=== PATIENT | female | born 1990 | race Caucasian/White ===

== ENCOUNTER 2016-11-27 15:01 | Emergency (ER) | payer MEDICARE, MEDICAID ==
--- NOTE | 2016-11-27 15:57 | ER Document Report ---
ED Medical Screen (RME) - General Chief Complaint: Abdominal Pain Stated Complaint: RIGHT SIDE PAIN Notes: Patient was referred here from her private doctor's office to have a CT scan of her abdomen to rule out appendicitis. Patient says she started having lower right abdominal pain last night and has gotten worse. She went to the doctor's office today and after their exam, including a pelvic exam, she was referred here for further workup. Patient says she's been nauseated but not vomiting. No diarrhea. No UTI symptoms. Did have a fever last night. LMP 4/13. On no control. No prior abdominal surgeries. Medications are for treating anxiety, bipolar disorder, ADHD. TRAVEL OUTSIDE OF THE [place] IN LAST 30 DAYS: No - Related Data Allergies/Adverse Reactions: No Known Allergies Allergy (Verified 11/27/16 15:23) Past Medical History - Past Medical History Cardiac Medical History: Denies: Hx Coronary Artery Disease, Hx Heart Attack, Hx Hypertension Pulmonary Medical History: Denies: Hx Asthma, Hx Bronchitis, Hx COPD, Hx Pneumonia Neurological Medical History: Denies: Hx Cerebrovascular Accident, Hx Seizures Renal/ Medical History: Denies: Hx Peritoneal Dialysis GI Medical History: Reports: Hx Gastroesophageal Reflux Disease Musculoskeltal Medical History: Reports Hx Arthritis - knees and lower back Psychiatric Medical History: Reports: Hx Attention Deficit Hyperactivity Disorder, Hx Bipolar Disorder, Hx Depression Past Surgical History: Reports: Hx Oral Surgery. Denies: Hx Hysterectomy - Immunizations Immunizations up to date: Yes Hx Diphtheria, Pertussis, Tetanus Vaccination: No - unsure Physical Exam - Vital signs Vitals: Temp Pulse Resp BP Pulse Ox 98.5 F 92 20 122/73 97 11/27/16 15:25 11/27/16 15:25 11/27/16 15:25 11/27/16 15:25 11/27/16 15:25 Course - Vital Signs Vital signs: Temp Pulse Resp BP Pulse Ox 98.5 F 92 20 122/73 97 11/27/16 15:25 11/27/16 15:25 11/27/16 15:25 11/27/16 15:25 11/27/16 15:25
[2016-11-27 16:11] LABS: ABSOLUTE BASOPHILS # (AUTO) 0.1 10^3/uL (0.0-0.2); ABSOLUTE EOSINOPHILS # (AUTO) 0.2 10^3/uL (0.0-0.6); ABSOLUTE LYMPHOCYTES (AUTO) 1.4 10^3/uL (0.5-4.7); ABSOLUTE MONOCYTES (AUTO) 0.5 10^3/uL (0.1-1.4); ABSOLUTE NEUT (AUTO) 4.7 10^3/uL (1.7-8.2); BASOPHILS % (AUTO) 0.8 % (0-2); EOSINOPHILS % (AUTO) 2.3 % (0-6); HEMATOCRIT 40.2 % (36.0-47.0); HEMOGLOBIN 13.8 g/dL (12.0-15.5); HGB HCT DIFFERENCE 1.2; LYMPHOCYTES % (AUTO) 20.1 % (13-45); MEAN CORPUSCULAR HEMOGLOBIN 28.7 pg (27.0-33.4); MEAN CORPUSCULAR HGB CONC 34.3 g/dL (32.0-36.0); MEAN CORPUSCULAR VOLUME 84 fl (80-97); MONOCYTES % (AUTO) 7.3 % (3-13); RED CELL DISTRIBUTION WIDTH 13.6 % (11.5-14.0); SEGMENTED NEUTROPHILS % (AUTO) 69.5 % (42-78); WHITE BLOOD COUNT 6.7 10^3/uL (4.0-10.5)
[2016-11-27 16:19] LABS: APPEARANCE,URINE SLIGHTLY-CLOUDY; BILIRUBIN,URINE NEGATIVE (NEGATIVE); GLUCOSE, URINE NEGATIVE (NEGATIVE); KETONES,URINE NEGATIVE (NEGATIVE); LEUKOCYTE ESTERASE,URINE NEGATIVE (NEGATIVE); NITRITE,URINE NEGATIVE (NEGATIVE); PROTEIN,URINE NEGATIVE (NEGATIVE); URINE SPECIFIC GRAVITY 1.028; UROBILINOGEN,URINE NEGATIVE mg/dL (<2.0)
[2016-11-27 16:33] LABS: ALANINE AMINOTRANSFERASE 29 U/L (9-52); ALBUMIN 4.4 g/dL (3.5-5.0); ALKALINE PHOSPHATASE 92 U/L (38-126); ANION GAP 12 (5-19); ASPARTATE AMINO TRANSFERASE 24 U/L (14-36); BILIRUBIN,DIRECT 0.2 mg/dL (0.0-0.4); BILIRUBIN,TOTAL 0.5 mg/dL (0.2-1.3); BLOOD UREA NITROGEN 15 mg/dL (7-20); CALCIUM 9.4 mg/dL (8.4-10.2); CARBON DIOXIDE 25 mmol/L (22-30); CHLORIDE 105 mmol/L (98-107); CREATININE RESULT 0.81 mg/dL (0.52-1.25); GLUCOSE 102 mg/dL (75-110); LIPASE 63.9 U/L (23-300); POTASSIUM 4.2 mmol/L (3.6-5.0); SODIUM 142.1 mmol/L (137-145); TOTAL PROTEIN 7.3 g/dL (6.3-8.2)
--- NOTE | 2016-11-27 16:33 | ER Document Report ---
ED GI/ - General Chief Complaint: Abdominal Pain Stated Complaint: RIGHT SIDE PAIN Time seen by provider: 16:33 Mode of Arrival: Ambulatory Information source: Patient Notes: 26 yo female c/o fever and RLQ sharp abdominal pain since 11 pm last night, she developed nausea without vomiting. Nonpainful intercourse with a new partner last night. No Vaginal discharge or bleeding. G0. No history of ovarian cyst STD or endometriosis. No abdominal surgeries. No flank pain. TRAVEL OUTSIDE OF THE [place] IN LAST 30 DAYS: No - Related Data Allergies/Adverse Reactions: No Known Allergies Allergy (Verified 11/27/16 15:23) Past Medical History - General Information source: Patient - Social History Smoking Status: Never Smoker Frequency of alcohol use: None Drug Abuse: None Lives with: Family Family History: Reviewed & Not Pertinent Patient has suicidal ideation: No Patient has homicidal ideation: No Renal/ Medical History: Denies: Hx Peritoneal Dialysis GI Medical History: Reports: Hx Gastroesophageal Reflux Disease Musculoskeltal Medical History: Reports Hx Arthritis - knees and lower back Psychiatric Medical History: Reports: Hx Attention Deficit Hyperactivity Disorder, Hx Bipolar Disorder, Hx Depression Past Surgical History: Reports: Hx Oral Surgery - Immunizations Immunizations up to date: Yes Hx Diphtheria, Pertussis, Tetanus Vaccination: No - unsure Review of Systems - Review of Systems Constitutional: No symptoms reported EENT: No symptoms reported Cardiovascular: No symptoms reported Respiratory: No symptoms reported Gastrointestinal: See HPI Genitourinary: No symptoms reported Female Genitourinary: No symptoms reported Musculoskeletal: No symptoms reported Skin: No symptoms reported Hematologic/Lymphatic: No symptoms reported Neurological/Psychological: No symptoms reported Physical Exam - Vital signs Vitals: Temp Pulse Resp BP Pulse Ox 98.5 F 92 20 122/73 97 11/27/16 15:25 11/27/16 15:25 11/27/16 15:25 11/27/16 15:25 11/27/16 15:25 Interpretation: Normal - General General appearance: Appears well, Alert In distress: None - HEENT Head: Normocephalic, Atraumatic Eyes: Normal Conjunctiva: Normal Pupils: PERRL Mucous membranes: Normal Pharynx: Normal Neck: Supple. No: Lymphadenopathy - Respiratory Respiratory status: No respiratory distress Chest status: Nontender Breath sounds: Normal Chest palpation: Normal - Cardiovascular Rhythm: Regular Heart sounds: Normal auscultation Murmur: No - Abdominal Inspection: Normal Distension: No distension Bowel sounds: Normal Tenderness: Tender, McBurney's point. No: Zazueta's sign Organomegaly: No organomegaly. No: Hepatomegaly, Splenomegaly - Genitourinary External exam: Normal Speculum exam: Vaginal discharge - Clear at I, Other - smells like BV. No: Cervix closed Bimanuel exam: No: Cervical motion tender, Adnexal tenderness - Back Back: Normal, Nontender. No: CVA tenderness - Extremities General upper extremity: Normal inspection, Nontender, Normal color, Normal ROM , Normal temperature General lower extremity: Normal inspection, Nontender, Normal color, Normal ROM , Normal temperature, Normal weight bearing. No: Andreas's sign - Neurological Neuro grossly intact: Yes Cognition: Normal Orientation: AAOx4 Ambar Coma Scale Eye Opening: Spontaneous Ambar Coma Scale Verbal: Oriented Ambar Coma Scale Motor: Obeys Commands Ambar Coma Scale Total: 15 Speech: Normal Motor strength normal: LUE, RUE, LLE, RLE Sensory: Normal - Psychological Associated symptoms: Normal affect, Normal mood - Skin Skin Temperature: Warm Skin Moisture: Dry Skin Color: Normal Skin irregularity: negative: Rash Course - Re-evaluation Re-evalutation: 11/27/16 17:04 I spoke with Mariah and Dr. Luna's office who did the pelvic exam. They did do a new swab which the results will not be back today it tests for BV Chlamydia gonorrhea and trichomonas. She did say that it smelled like bacterial vaginosis and she had some mild right adnexal tenderness. 11/27/16 18:19 appendix not seen on IV contrasted CT, labs normal except for wet prep, std testing pending/ will have pt call me back for results she knows to return tonight if the pain gets worse, otherwise recheck the belly tomorrow at Dr. Luna's or the emergency department. I discussed with her this benign vaginal wall cyst . She can see OBGYN about it. 11/27/16 18:[address] [facility] dr. buckner for disposition. OK to go home. 11/27/16 18:39 - Vital Signs Vital signs: Temp Pulse Resp BP Pulse Ox 98.5 F 92 20 122/73 97 11/27/16 15:25 11/27/16 15:25 11/27/16 15:25 11/27/16 15:25 11/27/16 15:25 - Laboratory Result Diagrams: 11/27/16 15:55 11/27/16 15:55 Discharge - Discharge Clinical Impression: Bacterial vaginosis, right lower quadrant abdominal pain, 2 x 3 cm Shane's duct cyst rt vaginal wall Condition: Good Disposition: HOME, SELF-CARE Instructions: Abdominal Pain ([facility]), Acetaminophen, Anti-Inflammatory Medication ([facility]), Metronidazole ([facility]), Vaginosis, Bacterial ([facility]) Additional Instructions: return to ER for recheck of abdomin in the morning ( morning) return to ER sooner if worse you will be treated for bacterial vaginosis with flagyl 500mg twice a day, do not drink alcohol when you take this medication std cultures will be resulted in 2 hours, call mi [phone]. Prescriptions: Ibuprofen [Motrin 800 mg Tablet] 800 mg PO Q8HP PRN #30 tablet PRN Reason: Referrals: JEANINE LUNA MD [Primary Care Provider] - Follow up tomorrow ERROL RAMIREZ MD [ACTIVE STAFF] - Follow up as needed
[2016-11-27 18:41] LABS: CHLAM PCR NOT DETECTED (NOT DETECT)
[2016-11-27 18:49] VITALS: BP 126/72
== END 2016-11-27 18:53 | disposition home or self-care (01) ==
LOC: ER 15:01
DX: N76.0 Acute vaginitis (principal); R10.31 Right lower quadrant pain; Q52.4 Other congenital malformations of vagina
CPT/HCPCS: 36415; 74177; 80053; 81001; 83690; 84703; 85025; 87210; 87491; 87591; 99284

== ENCOUNTER 2016-12-14 23:23 | Emergency (ER) | payer MEDICARE, MEDICAID ==
[2016-12-15] MEDS ORDERED: METHOCARBAMOL 500 MG TABLET PO ONE (00:57)
--- NOTE | 2016-12-15 01:02 | ER Document Report ---
HPI - HPI Patient complains to provider of: back pain Onset: Other - 3 days Pain Level: 4 Context: Patient presents to the emergency department with complaints of low back pain for the past 3 days. Patient denies trauma. Denies urinary or bowel incontinence or retention. Denies numbness and tingling. Patient reports she just woke up with her back hurting. Patient reports she's had this pain in the past. Reports history of arthritis. Denies fever vomiting diarrhea. Denies pain with void. Patient reports pain with movement. She reports she took ibuprofen approximately 8 hours ago with no relief of pain. Associated Symptoms: None Exacerbated by: Movement Relieved by: Denies Similar symptoms previously: Yes Recently seen / treated by doctor: No - CONSTITUTIONAL Constitutional: DENIES: Fever, Chills - REPRODUCTIVE Reproductive: DENIES: : - MUSCULOSKELETAL Musculoskeletal: REPORTS: Back Pain - DERM Skin Color: Normal, [place] Skin Problems: None - NURSING COMMENTS Comment: pt presents to the ED with c/o low back pain that occured 3days ago after bending over. pt is ambulatory and appropriate at this time Past Medical History - General Information source: Patient Last Menstrual Period: last november - Social History Smoking Status: Unknown if Ever Smoked Cigarette use (# per day): No Frequency of alcohol use: None Drug Abuse: None Occupation: none Lives with: Family Family History: Reviewed & Not Pertinent - Past Medical History Cardiac Medical History: Denies: Hx Coronary Artery Disease, Hx Heart Attack, Hx Hypertension Pulmonary Medical History: Denies: Hx Asthma, Hx Bronchitis, Hx COPD, Hx Pneumonia Neurological Medical History: Denies: Hx Cerebrovascular Accident, Hx Seizures Renal/ Medical History: Denies: Hx Peritoneal Dialysis GI Medical History: Reports: Hx Gastroesophageal Reflux Disease Musculoskeltal Medical History: Reports Hx Arthritis - knees and lower back Psychiatric Medical History: Reports: Hx Attention Deficit Hyperactivity Disorder, Hx Bipolar Disorder, Hx Depression Past Surgical History: Reports: Hx Oral Surgery. Denies: Hx Hysterectomy - Immunizations Immunizations up to date: Yes Hx Diphtheria, Pertussis, Tetanus Vaccination: No - unsure Vertical Provider Document - CONSTITUTIONAL Agree With Documented VS: Yes Exam Limitations: No Limitations General Appearance: WD/WN, Mild Distress - winces with movement - INFECTION CONTROL TRAVEL OUTSIDE OF THE [place] IN LAST 30 DAYS: No - HEENT HEENT: Atraumatic, Normocephalic - NECK Neck: Normal Inspection, Supple. negative: Lymphadenopathy-Left, Lymphadenopathy-Right - RESPIRATORY Respiratory: Breath Sounds Normal, No Respiratory Distress O2 Sat by Pulse Oximetry: 98 - CARDIOVASCULAR Cardiovascular: Regular Rate, Regular Rhythm - GI/ABDOMEN Gastrointestinal: Abdomen Soft, Abdomen Non-Tender - BACK Back: Normal Inspection - No obvious deformity good distal movement and sensation. good Reflexes, no weakness complains of bilateral low back pain denies vertebral pain - MUSCULOSKELETAL/EXTREMETIES Musculoskeletal/Extremeties: MAEW, FROM, Non-Tender - NEURO Level of Consciousness: Awake, Alert, Appropriate Motor/Sensory: No Motor Deficit - DERM Integumentary: Warm, Dry Adult Front & Back Diagram: 1 - low back pain paraspinal, no vertebral tenderness Course - Re-evaluation Re-evalutation: 12/15/16 01:04 The patient presents with low back pain without signs of spinal cord compression , cauda equine syndrome, infection, aneurysm, or other serious etiology. The patient is neurologically intact. The patient has good distal movement and sensation, denies urinary or bowel incontinence/retention. Given the extremely low risk of these diagnosis, further testing and evaluation for these possibilities does not appear to be indicated at this time. The patient has been instructed to return if the symptoms worsen or change in anyway. - Vital Signs Vital signs: Temp Pulse Resp BP Pulse Ox 98.8 F 92 14 116/68 98 12/14/16 23:27 12/14/16 23:27 12/14/16 23:27 12/14/16 23:27 12/14/16 23:27 Discharge - Discharge Clinical Impression: Low back pain Qualifiers: Chronicity: acute Back pain laterality: bilateral Sciatica presence: without sciatica Qualified Code(s): M54.5 - Low back pain Condition: Stable Disposition: HOME, SELF-CARE Instructions: Ice Packs ([facility]), Low Back Pain ([facility]), Muscle Strain ([facility]), Warm Packs ([facility]), Use of [id number] Ibuprofen ([facility]), Muscle Relaxers ([facility]) Additional Instructions: *You have been evaluated for low back muscle pain *Take medication as prescribed *Rest/Ice packs, heat packs as directed *Follow up with your primary care provider Friday *Return to ED for worsening condition, changes, needs Prescriptions: Cyclobenzaprine HCl [Flexeril 5 mg Tablet] 5 mg PO TID #15 tablet Referrals: JEANINE LUCAS MD [Primary Care Provider] - 12/16/16
[2016-12-15 01:11] VITALS: BP 117/69
== END 2016-12-15 01:11 | disposition home or self-care (01) ==
LOC: ER 23:23
DX: M46.90 Unspecified inflammatory spondylopathy, site unspecified (principal); M54.5 Low back pain
CPT/HCPCS: 99283; A9270

== ENCOUNTER 2017-07-25 22:10 | Emergency (ER) | payer MEDICARE, MEDICAID ==
--- NOTE | 2017-07-25 23:55 | ER Document Report ---
ED GI/ - General Mode of Arrival: Ambulatory Information source: Patient TRAVEL OUTSIDE OF THE [place] IN LAST 30 DAYS: No - HPI Patient complains to provider of: Dysuria, Flank pain Onset: Other Location: Left flank Relieved by: Supine - General Chief Complaint: UTI symptoms Stated Complaint: FLANK PAIN Time Seen by Provider: 07/25/17 23:41 Notes: Patient is a 26 year old female with a history of frequents UTIs presents to the emergency department complaining of left flank pain onset 3 days ago. Patients associated symptoms include dysuria, burning urination and frequency. Patient denies fevers. (GURINDER,TAMAYA) - Related Data Allergies/Adverse Reactions: No Known Allergies Allergy (Verified 12/14/16 23:27) Past Medical History - General Information source: Patient - Social History Smoking Status: Current Every Day Smoker Cigarette use (# per day): Yes Chew tobacco use (# tins/day): No Smoking Education Provided: Yes - >4 mins Frequency of alcohol use: None Family History: Reviewed & Not Pertinent GI Medical History: Reports: Hx Gastroesophageal Reflux Disease Musculoskeltal Medical History: Reports Hx Arthritis - knees and lower back Psychiatric Medical History: Reports: Hx Attention Deficit Hyperactivity Disorder, Hx Bipolar Disorder, Hx Depression Past Surgical History: Reports: Hx Oral Surgery - Immunizations Immunizations up to date: Yes Hx Diphtheria, Pertussis, Tetanus Vaccination: No - unsure Review of Systems - Review of Systems Constitutional: No symptoms reported EENT: No symptoms reported Cardiovascular: No symptoms reported Respiratory: No symptoms reported Gastrointestinal: No symptoms reported Genitourinary: See HPI, Burning, Dysuria, Frequency, Flank pain Female Genitourinary: No symptoms reported Musculoskeletal: No symptoms reported Skin: No symptoms reported Hematologic/Lymphatic: No symptoms reported Neurological/Psychological: No symptoms reported -: Yes All other systems reviewed and negative Physical Exam - Vital signs Vitals: Temp Pulse Resp BP Pulse Ox 99 F 103 H 16 127/80 H 96 07/25/17 22:35 07/25/17 22:35 07/25/17 22:35 07/25/17 22:35 07/25/17 22:35 - Notes Notes: GENERAL: Alert, interacts well. No acute distress. HEAD: Normocephalic, atraumatic. EYES: Pupils equal, round, and reactive to light. Extraocular movements intact. ENT: Oral mucosa moist, tongue midline. NECK: Full range of motion. Supple. Trachea midline. LUNGS: Clear to auscultation bilaterally, no wheezes, rales, or rhonchi. No respiratory distress. HEART: Regular rate and rhythm. No murmurs, gallops, or rubs. ABDOMEN: Soft, Suprapubic and LLQ tender to palpaiton, no guarding or rebound. Non-distended. Bowel sounds present in all 4 quadrants. EXTREMITIES: Moves all 4 extremities spontaneously. No edema, radial and dorsalis pedis pulses 2/4 bilaterally. No cyanosis. NEUROLOGICAL: Alert and oriented x3. Normal speech. PSYCH: Normal affect, normal mood. SKIN: Warm, dry, normal turgor. No rashes or lesions noted. (LING FAIRCHILD) Course - Re-evaluation Re-evalutation: 07/26/17 00:39 Urinalysis shows small blood, positive nitrates and leukocyte esterase, greater than 182 WBCs only 19 RBCs, 3+ bacteria, many white blood cell clumps. Suspect UTI rather than infected stone given the description of her pain and the description of her symptoms. No indication for CT scan at this time. Patient will be treated with Pyridium and Keflex. Discharged home. Urine culture has been sent. (ZOEY COMBS) - Vital Signs Vital signs: Temp Pulse Resp BP Pulse Ox 99 F 103 H 16 127/80 H 96 07/25/17 22:35 07/25/17 22:35 07/25/17 22:35 07/25/17 22:35 07/25/17 22:35 - Laboratory Laboratory results interpreted by me: 07/25/17 22:40 Urine Protein 100 H Urine Ketones 20 H Urine Blood SMALL H Urine Nitrite POSITIVE H Ur Leukocyte Esterase LARGE H Discharge - Discharge Clinical Impression: Prehypertension, Tobacco abuse, Tobacco abuse counseling UTI (urinary tract infection) Qualifiers: Urinary tract infection type: acute cystitis Hematuria presence: with hematuria Qualified Code(s): N30.01 - Acute cystitis with hematuria Condition: Stable Disposition: HOME, SELF-CARE Prescriptions: Cephalexin Monohydrate [Keflex 500 mg Capsule] 1,000 mg PO BID #20 capsule Phenazopyridine HCl [Pyridium 200 mg Tablet] 200 mg PO TID #7 tablet Forms: Elevated Blood Pressure, Smoking Cessation Education Referrals: RED REYNAGA MD [ACTIVE STAFF] - Follow up in 1 week Scribe Attestation: 07/26/17 01:25 I personally performed the services described in the documentation, reviewed and edited the documentation which was dictated to the scribe in my presence, and it accurately records my words and actions. (ZOEY COMBS) Scribe Documentation - Scribe Written by Scribe:: Babatunde Lopez, 07/26/2017 00:06 acting as scribe for :: Enzo
[2017-07-26 00:15] LABS: APPEARANCE,URINE CLOUDY; BILIRUBIN,URINE NEGATIVE (NEGATIVE); GLUCOSE, URINE NEGATIVE (NEGATIVE); KETONES,URINE 20 mg/dL (NEGATIVE); LEUKOCYTE ESTERASE,URINE LARGE (NEGATIVE); NITRITE,URINE POSITIVE (NEGATIVE); PROTEIN,URINE 100 mg/dL (NEGATIVE); UROBILINOGEN,URINE NEGATIVE mg/dL (<2.0)
[2017-07-26] MEDS ORDERED: CEPHALEXIN 500 MG CAPSULE PO ONE (00:36)
[2017-07-26] MEDS ORDERED: PHENAZOPYRIDINE HCL 200 MG TABLET PO ONE (00:36)
[2017-07-26 01:28] VITALS: BP 118/82
== END 2017-07-26 01:40 | disposition home or self-care (01) ==
LOC: ER 22:10
DX: R03.0 Elevated blood-pressure reading, without diagnosis of hypertension (principal); N30.01 Acute cystitis with hematuria; R10.9 Unspecified abdominal pain; F17.210 Nicotine dependence, cigarettes, uncomplicated; Z87.440 Personal history of urinary (tract) infections
CPT/HCPCS: 99284; 87086; 81025; 87088; 81001; A9270 ×2; 87186; J3490